=== PATIENT | male | born 1975 | race Caucasian/White ===

== ENCOUNTER 2021-11-25 14:29 | Emergency (ER) | payer OTHER ==
[2021-11-25 15:46] LABS: HEMOGLOBIN 14.1 gm/dl (14.0-17.5); RED BLOOD COUNT 4.32 M/UL (4.20-5.50); WHITE BLOOD COUNT 8.8 K/UL (4.5-11.0)
[2021-11-25 16:26] LABS: BUN/CREATININE RATIO 18 (0-10)
== END 2021-11-25 20:55 | disposition home or self-care (01) ==
LOC: ER1 14:29
PROVIDERS: Physician Assistant Medical
DX: R07.89 Other chest pain (principal); F17.210 Nicotine dependence, cigarettes, uncomplicated
CPT/HCPCS: 71045; 80053; 82550; 82553; 84484; 85025; 93005; 99285

== ENCOUNTER 2022-01-09 10:32 | Emergency (ER) | payer OTHER ==
[2022-01-09 11:35] LABS: HEMOGLOBIN 16.8 gm/dl (14.0-17.5); RED BLOOD COUNT 5.11 M/UL (4.20-5.50); WHITE BLOOD COUNT 12.7 K/UL (4.5-11.0)
[2022-01-09 11:45] LABS: BUN/CREATININE RATIO 19 (0-10)
[2022-01-09] MEDS ORDERED: PROTONIX40 MG PO (15:28)
[2022-01-09] MEDS ORDERED: ONDANSETRON ODT4 MG SL (15:28)
== END 2022-01-09 16:25 | disposition home or self-care (01) ==
LOC: ER1 10:32
PROVIDERS: Physician Assistant
DX: K83.8 Other specified diseases of biliary tract (principal); F17.200 Nicotine dependence, unspecified, uncomplicated
CPT/HCPCS: 76705; 80053; 81001; 82550; 82553; 83690; 84484; 85025; 96361; 96374; 96375; 99284; C9113; J2270; J2405; Q9967

== ENCOUNTER 2022-02-20 08:24 | Emergency (ER) | payer OTHER ==
[~2022-02-20 08:24] MED LIST: ONDANSETRON ODT4 MG SL; PROTONIX40 MG PO
[2022-02-20] MEDS ORDERED: AMOXICILLIN500 M1 PO (10:24)
== END 2022-02-20 10:32 | disposition home or self-care (01) ==
LOC: ER1 08:24
DX: J02.0 Streptococcal pharyngitis (principal); F17.200 Nicotine dependence, unspecified, uncomplicated; Z20.822 Contact with and (suspected) exposure to COVID-19
CPT/HCPCS: 71045; 87081; 87880; 99283; U0002